=== PATIENT | female | born 1985 | race Caucasian/White ===

== ENCOUNTER 2017-08-22 19:08 | Emergency (ER) | payer OTHER ==
[2017-08-22] MEDS ORDERED: ACETAMINOPHEN TAB 500 MG TAB PO STA (19:42)
--- NOTE | 2017-08-22 20:16 | ED ---
General Adult HPI - General Chief complaint: Upper Respiratory Infection Stated complaint: Cough Time Seen by Provider: 08/22/17 19:29 Source: patient, family, RN notes reviewed Mode of arrival: ambulatory Limitations: no limitations - History of Present Illness Initial comments: Chief complaint and history of present illness this is a 31-year-old female here for complaint of muscle aches and pains mild headache sore throat and cough. Ongoing for several days. Current temperature 99.1. - Related Data Home Medications Medication Instructions Recorded Confirmed Acetaminophen Tab [Tylenol Tab] 650 mg PO Q4H PRN 08/22/17 08/22/17 Pnv,Calcium 72/Iron/Folic Acid 1 tab PO DAILY 08/22/17 08/22/17 [ Plus Tablet] Pseudoephedrine [Sudafed] 30 mg PO Q4H PRN 08/22/17 08/22/17 Previous Rx's Medication Instructions Recorded Amoxicillin 500 mg PO Q8H 10 Days #30 capsule 08/22/17 Allergies Allergy/AdvReac Type Severity Reaction Status Date / Time No Known Allergies Allergy Verified 08/22/17 19:25 Review of Systems ROS Statement: Those systems with pertinent positive or pertinent negative responses have been documented in the HPI. review of systems. The patient has mild headache mild sore throat no stiff neck dry cough muscle aches and pains nausea but no vomiting. The patient is 14 weeks also. 1 para 0. Patient denies any neuro deficits. All systems are reviewed. Past medical problems no problems. Surgeries none. Family history no cancers. Patient denies any ALLERGIES. She does smoke strongly encouraged stop denies alcohol use ROS Other: All systems not noted in ROS Statement are negative. Past Medical History Past Medical History: No Reported History History of Any Multi-Drug Resistant Organisms: None Reported Past Surgical History: No Surgical Hx Reported Past Psychological History: No Psychological Hx Reported Smoking Status: Current every day smoker Past Alcohol Use History: None Reported Past Drug Use History: None Reported General Exam - General Exam Comments Initial Comments: General: The patient is awake and alert, complains of flu-type symptoms plus right ear pain. Vital signs show temperature 99.1 pulse 120 respiratory rate 18, pulse ox 98% on room air. Eye: Pupils are equal, round and reactive to light, extra-ocular movements are intact ; there is normal conjunctiva bilaterally. No signs of icterus. Ears, nose, mouth and throat: There are moist mucous membranes , no anterior cervical lymphadenopathy, no meningeal rotation. Right ear shows full red tympanic membrane. Neck: The neck is supple, there is no tenderness . Cardiovascular: tachycardic heart rate 120.. No murmur, rub or gallop is appreciated. Respiratory: Lungs are clear to auscultation, respirations are non-labored, breath sounds are equal. No wheezes, stridor, rales, or rhonchi. Gastrointestinal: nauseated but no vomiting. History of being 14 weeks . No cramping or vaginal discharge or bleeding or spotting. Back: denies bony back pain just musculoskeletal pain. Musculoskeletal: normal range of motion upper and lower extremities Neurological: no evidence of a complaints of any neuro deficits. Skin: Skin is warm and dry and no rashes or lesions are noted. Limitations: no limitations Course Vital Signs 08/22/17 08/22/17 19:16 19:55 Temperature 99.1 F Pulse Rate 120 H Respiratory 18 20 Rate Blood Pressure 106/59 O2 Sat by Pulse 98 Oximetry Medical Decision Making - Medical Decision Making Influenza AB reported to be negative by laboratory.The patient's symptoms started 5 days ago. Also complaining of right ear infection. The patient be placed on amoxicillin 500 one 3 times a day 10 days. Advised to use Tylenol for pain and fever. Increase fluid intake and follow with family physician and her [employer] [facility]. - Lab Data Lab Results 08/22/17 Range/Units 19:50 Influenza Type A RNA Not Detected (Not Detectd) Influenza Type B (PCR) Not Detected (Not Detectd) Disposition Clinical Impression: Right otitis media, URI (upper respiratory infection) Disposition: HOME SELF-CARE Condition: Fair Instructions: Upper Respiratory Infection (ED), Otitis Media (ED) Additional Instructions: Increase fluids, Tylenol for pain and fever. Amoxicillin 3 times daily until completed. Follow-up with family physician and [facility] as needed. Prescriptions: Amoxicillin 500 mg PO Q8H 10 Days #30 capsule Referrals: None,Stated [Primary Care Provider] - 1-2 days Anna Wagner MD [REFERRING] - 1-2 days Time of Disposition: 20:24
[2017-08-22] MEDS ORDERED: AMOXICILLIN 500MG STARTER PACK 3 CAP BTL PO STA (20:22)
[2017-08-22 20:36] VITALS: BP 122/65; PULSE 103; RESP 18; TEMP 99
== END 2017-08-22 20:36 | disposition home or self-care (01) ==
LOC: EC 19:08
DX: O99.512 Diseases of the respiratory system complicating pregnancy, second trimester (principal); J06.9 Acute upper respiratory infection, unspecified; O99.89 Other specified diseases and conditions complicating pregnancy, childbirth and the puerperium; H66.91 Otitis media, unspecified, right ear; R11.0 Nausea; R00.0 Tachycardia, unspecified; O99.332 Smoking (tobacco) complicating pregnancy, second trimester; F17.200 Nicotine dependence, unspecified, uncomplicated; Z79.899 Other long term (current) drug therapy; Z3A.14 14 weeks gestation of pregnancy
CPT/HCPCS: 87502; 99283

== ENCOUNTER 2018-02-22 12:26 | Observation (INO) | payer OTHER ==
[2018-02-22] MEDS ORDERED: ACETAMINOPHEN IV (For NPO) 1,000 MG in EMPTY BAG 1 BAG IVPB STA (12:56)
[2018-02-22] MEDS ORDERED: ONDANSETRON 4 MG/2 ML VIAL IVP STA (12:57)
--- NOTE | 2018-02-22 13:01 | ED ---
General Adult HPI - General Chief complaint: Shortness of Breath Stated complaint: Shaking, Nausea (had baby on the 6th) Time Seen by Provider: 02/22/18 12:46 Source: patient, RN notes reviewed Mode of arrival: wheelchair Limitations: no limitations - History of Present Illness Initial comments: Patient is a pleasant 32-year-old female presenting to the emergency Department with fever and shaking. Onset of symptoms was 2 nights ago during the night, patient was sweaty. Patient felt fine yesterday. Throughout the night again last night patient became sweaty and not feeling well. Patient did vomit a couple of times this morning and still feels nauseated. Patient does feel a little short of breath. Patient does have a cough however this is a chronic cough. Patient is post approximately 6 days. Patient is A1. Patient still has some bleeding, similar to a period. No pelvic pain. No abdominal pain. Patient did have vaginal delivery. Patient did have some tearing and did have an episiotomy. Patient did take Motrin and hour or 2 prior to arrival. - Related Data Home Medications Medication Instructions Recorded Confirmed Pnv,Calcium 72/Iron/Folic Acid 1 tab PO HS 08/22/17 02/22/18 [ Plus Tablet] Docusate [Colace] 100 mg PO DAILY 02/22/18 02/22/18 Ferrous Sulfate [Feosol] 325 mg PO DAILY 02/22/18 02/22/18 Ibuprofen [Motrin] 600 mg PO Q8HR PRN 02/22/18 02/22/18 Allergies Allergy/AdvReac Type Severity Reaction Status Date / Time No Known Allergies Allergy Verified 02/22/18 12:50 Review of Systems ROS Statement: Those systems with pertinent positive or pertinent negative responses have been documented in the HPI. ROS Other: All systems not noted in ROS Statement are negative. Constitutional: Reports: fever, chills Eyes: Denies: eye pain ENT: Denies: ear pain Respiratory: Reports: cough, dyspnea Cardiovascular: Denies: chest pain Endocrine: Reports: fatigue Gastrointestinal: Reports: nausea, vomiting. Denies: abdominal pain Genitourinary: Denies: dysuria Musculoskeletal: Denies: back pain Skin: Denies: rash Neurological: Denies: weakness Past Medical History Past Medical History: No Reported History History of Any Multi-Drug Resistant Organisms: None Reported Past Surgical History: No Surgical Hx Reported Past Psychological History: No Psychological Hx Reported Smoking Status: Current every day smoker Past Alcohol Use History: None Reported Past Drug Use History: None Reported General Exam Limitations: no limitations General appearance: alert, in no apparent distress Head exam: Present: atraumatic Eye exam: Present: normal appearance, PERRL ENT exam: Present: normal oropharynx Neck exam: Present: normal inspection Respiratory exam: Present: normal lung sounds bilaterally Cardiovascular Exam: Present: tachycardia GI/Abdominal exam: Present: soft. Absent: tenderness External exam: Present: normal external exam Speculum exam: Present: vaginal bleeding (Minimal) By manual exam: Present: adnexal tenderness (Minimal), uterine tenderness ( Minimal) Extremities exam: Present: normal inspection. Absent: pedal edema, calf tenderness Neurological exam: Present: alert Psychiatric exam: Present: normal affect, normal mood Skin exam: Present: normal color Course Vital Signs 02/22/18 02/22/18 02/22/18 12:30 12:45 13:15 Temperature 99.3 F Pulse Rate 159 H 133 H 130 H Respiratory 24 22 22 Rate Blood Pressure 85/46 114/62 108/56 O2 Sat by Pulse 98 99 99 Oximetry 02/22/18 02/22/18 15:00 16:00 Temperature 98.0 F Pulse Rate 111 H 104 H Respiratory 22 20 Rate Blood Pressure 97/55 102/59 O2 Sat by Pulse 97 98 Oximetry - Reevaluation(s) Reevaluation #1: 02/22/18 16:25 Patient reevaluated and improved. Dyspnea resolved. Pelvic exam done in the presence of KISHAN Hudson 02/22/18 17:07 There is concern for infection with urinary tract infection and potentially retained products. Hypotension resolved following fluid bolus. Patient does meet criteria for severe sepsis. Blood culture and lactic acid and fluid bolus and IV antibiotics have been ordered. EKG Findings - EKG Comments: EKG Findings:: Sinus tachycardia 117. FL 132. QRS 86. QT 310. QTc 432. Normal axis. Normal QRS. No acute ST change. Medical Decision Making - Medical Decision Making Upon reevaluation patient was improved from original presentation. Patient does remain tachycardic. Patient was updated on results and plan. Case was discussed in detail Dr. Schmid, who will admit for obstetrical call. - Lab Data Result diagrams: 02/22/18 13:10 02/22/18 13:10 Lab Results 02/22/18 02/22/18 02/22/18 Range/Units 13:10 13:10 13:10 WBC 5.0 (3.8-10.6) k/uL RBC 3.34 L (3.80-5.40) m/uL Hgb 10.3 L (11.4-16.0) gm/dL Hct 30.2 L (34.0-46.0) % MCV 90.6 (80.0-100.0) fL MCH 30.9 (25.0-35.0) pg MCHC 34.1 (31.0-37.0) g/dL RDW 13.0 (11.5-15.5) % Plt Count 315 (150-450) k/uL Neutrophils % 93 % Lymphocytes % 5 % Monocytes % 1 % Eosinophils % 0 % Basophils % 0 % Neutrophils # 4.7 (1.3-7.7) k/uL Lymphocytes # 0.2 L (1.0-4.8) k/uL Monocytes # 0.1 (0-1.0) k/uL Eosinophils # 0.0 (0-0.7) k/uL Basophils # 0.0 (0-0.2) k/uL PT (9.0-12.0) sec INR (<1.2) APTT (22.0-30.0) sec Sodium 134 L (137-145) mmol/L Potassium 3.6 (3.5-5.1) mmol/L Chloride 104 (98-107) mmol/L Carbon Dioxide 18 L (22-30) mmol/L Anion Gap 12 mmol/L BUN 12 (7-17) mg/dL Creatinine 0.68 (0.52-1.04) mg/dL Est GFR (CKD-EPI)AfAm >90 (>60 ml/min/1.73 sqM) Est GFR (CKD-EPI)NonAf >90 (>60 ml/min/1.73 sqM) Glucose 96 (74-99) mg/dL Plasma Lactic Acid Luther 1.7 (0.7-2.0) mmol/L Calcium 9.1 (8.4-10.2) mg/dL Total Bilirubin 0.4 (0.2-1.3) mg/dL AST 21 (14-36) U/L ALT 23 (9-52) U/L Alkaline Phosphatase 228 H (38-126) U/L Total Protein 5.9 L (6.3-8.2) g/dL Albumin 3.1 L (3.5-5.0) g/dL Urine Color Urine Appearance (Clear) Urine pH (5.0-8.0) Ur Specific [place] (1.001-1.035) Urine Protein (Negative) Urine Glucose (UA) (Negative) Urine Ketones (Negative) Urine Blood (Negative) Urine Nitrite (Negative) Urine Bilirubin (Negative) Urine Urobilinogen (<2.0) mg/dL Ur Leukocyte Esterase (Negative) Urine RBC (0-5) /hpf Urine WBC (0-5) /hpf Ur Squamous Epith Cells (0-4) /hpf Urine Bacteria (None) /hpf Urine Mucus (None) /hpf 02/22/18 02/22/18 Range/Units 13:10 14:48 WBC (3.8-10.6) k/uL RBC (3.80-5.40) m/uL Hgb (11.4-16.0) gm/dL Hct (34.0-46.0) % MCV (80.0-100.0) fL MCH (25.0-35.0) pg MCHC (31.0-37.0) g/dL RDW (11.5-15.5) % Plt Count (150-450) k/uL Neutrophils % % Lymphocytes % % Monocytes % % Eosinophils % % Basophils % % Neutrophils # (1.3-7.7) k/uL Lymphocytes # (1.0-4.8) k/uL Monocytes # (0-1.0) k/uL Eosinophils # (0-0.7) k/uL Basophils # (0-0.2) k/uL PT 9.9 (9.0-12.0) sec INR 1.0 (<1.2) APTT 20.9 L (22.0-30.0) sec Sodium (137-145) mmol/L Potassium (3.5-5.1) mmol/L Chloride (98-107) mmol/L Carbon Dioxide (22-30) mmol/L Anion Gap mmol/L BUN (7-17) mg/dL Creatinine (0.52-1.04) mg/dL Est GFR (CKD-EPI)AfAm (>60 ml/min/1.73 sqM) Est GFR (CKD-EPI)NonAf (>60 ml/min/1.73 sqM) Glucose (74-99) mg/dL Plasma Lactic Acid Luther (0.7-2.0) mmol/L Calcium (8.4-10.2) mg/dL Total Bilirubin (0.2-1.3) mg/dL AST (14-36) U/L ALT (9-52) U/L Alkaline Phosphatase (38-126) U/L Total Protein (6.3-8.2) g/dL Albumin (3.5-5.0) g/dL Urine Color Light Yellow Urine Appearance Clear (Clear) Urine pH 6.5 (5.0-8.0) Ur Specific [place] 1.004 (1.001-1.035) Urine Protein Negative (Negative) Urine Glucose (UA) Negative (Negative) Urine Ketones Negative (Negative) Urine Blood Large H (Negative) Urine Nitrite Negative (Negative) Urine Bilirubin Negative (Negative) Urine Urobilinogen <2.0 (<2.0) mg/dL Ur Leukocyte Esterase Large H (Negative) Urine RBC 15 H (0-5) /hpf Urine WBC 54 H (0-5) /hpf Ur Squamous Epith Cells 3 (0-4) /hpf Urine Bacteria Rare H (None) /hpf Urine Mucus Rare H (None) /hpf Critical Care Time Critical Care Time: Yes Total Critical Care Time: 31 Disposition Clinical Impression: Urinary tract infection, Severe sepsis, Retained products of conception Disposition: ADMITTED IP TO THIS HOSP Is patient prescribed a controlled substance at d/c from ED?: No Referrals: Roque Martinez DO [Primary Care Provider] - 1-2 days Decision Time: 17:08
[2018-02-22] MEDS: SODIUM CHLORIDE 0.9% 500 ML IV SCH ×5 (13:11→15:00)
[2018-02-22 13:32] LABS: Basophils % (A) 0 %; Eosinophils % (A) 0 %; HCT 30.2 % (34.0-46.0); HGB 10.3 gm/dL (11.4-16.0); Lymphocytes # (A) 0.2 k/uL (1.0-4.8); Lymphocytes % (A) 5 %; MCH 30.9 pg (25.0-35.0); MCHC 34.1 g/dL (31.0-37.0); MCV 90.6 fL (80.0-100.0); Mean Platelet Volume 6.8; Monocytes # (A) 0.1 k/uL (0-1.0); Monocytes % (A) 1 %; Neutrophils # (A) 4.7 k/uL (1.3-7.7); Neutrophils % (A) 93 %; Platelet Count 315 k/uL (150-450); RBC 3.34 m/uL (3.80-5.40)
[2018-02-22 13:41] LABS: ALT 23 U/L (9-52); AST 21 U/L (14-36); Albumin 3.1 g/dL (3.5-5.0); Alkaline Phosphatase 228 U/L (38-126); Anion Gap 12 mmol/L; Blood Urea Nitrogen 12 mg/dL (7-17); Calcium 9.1 mg/dL (8.4-10.2); Carbon Dioxide 18 mmol/L (22-30); Chloride 104 mmol/L (98-107); Glucose 96 mg/dL (74-99); Potassium 3.6 mmol/L (3.5-5.1); Sodium 134 mmol/L (137-145); Total Bilirubin 0.4 mg/dL (0.2-1.3); Total Protein 5.9 g/dL (6.3-8.2)
[2018-02-22 13:48] LABS: Partial Thromboplastin Time 20.9 sec (22.0-30.0); Prothrombin Time 9.9 sec (9.0-12.0)
--- NOTE | 2018-02-22 14:49 | US ---
EXAMINATION TYPE: US pelvis complete transvag DATE OF EXAM: 02/22/2018 COMPARISON: NONE CLINICAL HISTORY: Fever, . Fever, chills and vomiting x 1 day, 9 days , patient s tates bleeding was slowing down but started getting heavy again 3 days ago TECHNIQUE: . Transabdominal sonographic images of the pelvis were acquired. Date of LMP: Unknown EXAM MEASUREMENTS: Uterus: 22.6 x 7.7 x 13.9 cm Endometrial Stripe: Right Ovary: not seen Left Ovary: not seen 1. Uterus: anteverted, enlarged 2. Endometrium: 9.0 x 6.5 x 10.3cm vascular hypoechoic area appears to be within fundal portion of e ndometrium 3. Right Ovary: not seen due to enlarged uterus 4. Left Ovary: not seen due to enlarged uterus 5. Bilateral Adnexa: wnl 6. Posterior cul-de-sac: wnl IMPRESSION: There is some thickening of the endometrium region at the uterine fundus without fluid. N o evidence of an abscess. This measures 7 x 5 cm. The possibility of retained products should be cons idered. Endometritis is possible. I would also consider large endometrial polyp or unusual fibroid..
[2018-02-22 15:06] LABS: Appearance,Urine Clear (Clear); Bacteria,Urine Rare /hpf; Bilirubin,Urine Negative (Negative); Blood,Urine Large (Negative); Color,Urine Light Yellow; Glucose,Urine (UA) Negative (Negative); Ketones,Urine Negative (Negative); Leukocyte Esterase,Urine Large (Negative); Mucus,Urine Rare /hpf; Nitrite,Urine Negative (Negative); PH, Urine 6.5 (5.0-8.0); Protein,Urine Negative (Negative); RBC,Urine 15 /hpf (0-5); Specific Gravity,Urine 1.004 (1.001-1.035); Squamous Epithelial Cell,Urine 3 /hpf (0-4); Urobilinogen,Urine <2.0 mg/dL (<2.0); WBC,Urine 54 /hpf (0-5)
--- NOTE | 2018-02-22 15:19 | XR ---
EXAMINATION TYPE: XR chest 2V DATE OF EXAM: 02/22/2018 COMPARISON: NONE HISTORY: Short of breath TECHNIQUE: Frontal and lateral views of the chest are obtained. FINDINGS: Heart and mediastinum are normal. Lungs are clear. Costophrenic angles are clear. There ar e chest leads. Bony thorax is intact. IMPRESSION: Normal chest
[2018-02-22] MEDS ORDERED: AMPICILLIN-SULBACTAM 3 GM in SODIUM CHLORIDE 0.9% 100 ML IVPB STA (17:09)
[2018-02-22] MEDS ORDERED: ONDANSETRON 4 MG/2 ML VIAL IVP PRN (17:12)
[2018-02-22] MEDS ORDERED: NALOXONE 0.4 MG/ML 1 ML VIAL IV PRN (17:12)
[2018-02-22] MEDS ORDERED: GENTAMICIN PER PHARMACY MISCELLANE SCH (17:15)
[2018-02-22 18:09] VITALS: BMI 29.0
--- NOTE | 2018-02-22 18:09 | P.HPOB ---
History of Present Illness H&P Date: 02/22/18 Chief Complaint: Fever This is a 32-year-old 2 para 1011 woman who is 9 days from a normal spontaneous vaginal delivery that was complicated by a retained placenta. Over the past 24 hours she has felt progressively worse with fevers, chills, sweating and abdominal cramping. She has had intermittent bright red vaginal blood flow. She describes a healthy normal followed by a term spontaneous vaginal delivery at [facility]. It took approximately 1 hour for the placenta to be delivered by what sounds like a manual extraction. Upon evaluation in the emergency room pelvic ultrasound shows an enlarged uterus with a 10 cm vascular mass in the fundal region of the uterus consistent with retained products. Review of Systems Constitutional: Reports chills, Reports fever, Reports sweats Breasts: bilateral: swelling (Stopped breast-feeding 2-3 days ago) Cardiovascular: Reports shortness of breath, Denies chest pain, Denies irregular heart beat, Denies leg edema, Denies lightheadedness, Denies palpitations, Denies rapid heart beat Respiratory: Denies cough Gastrointestinal: Reports abdominal pain, Denies constipation, Denies diarrhea, Denies heartburn, Denies nausea, Denies vomiting Genitourinary: Reports abnormal vaginal bleeding, Reports vaginal discharge, Denies flank pain, Denies hematuria Menstruation: Reports as per HPI Musculoskeletal: Denies low back pain Integumentary: Denies rash Neurological: Denies headaches, Denies visual changes Endocrine: Reports fatigue, Denies high blood sugars Past Medical History Past Medical History: No Reported History History of Any Multi-Drug Resistant Organisms: None Reported Additional Past Surgical History / Comment(s): D&C 2016 for missed Past Psychological History: No Psychological Hx Reported Smoking Status: Current every day smoker Past Alcohol Use History: None Reported Past Drug Use History: None Reported Medications and Allergies Home Medications Medication Instructions Recorded Confirmed Type Pnv,Calcium 72/Iron/Folic Acid 1 tab PO HS 08/22/17 02/22/18 History [ Plus Tablet] Docusate [Colace] 100 mg PO DAILY 02/22/18 02/22/18 History Ferrous Sulfate [Feosol] 325 mg PO DAILY 02/22/18 02/22/18 History Ibuprofen [Motrin] 600 mg PO Q8HR PRN 09/15/18 09/15/18 History Allergies Allergy/AdvReac Type Severity Reaction Status Date / Time No Known Allergies Allergy Verified 02/22/18 12:50 Exam Vital Signs Temp Pulse Resp BP Pulse Ox 02/22/18 17:40 98.2 F 102 H 20 99/56 99 02/22/18 17:00 108 H 20 101/56 99 02/22/18 16:00 104 H 20 102/59 98 02/22/18 15:00 98.0 F 111 H 22 97/55 97 02/22/18 13:15 130 H 22 108/56 99 02/22/18 12:45 133 H 22 114/62 99 02/22/18 12:30 99.3 F 159 H 24 85/46 98 Intake and Output 02/22/18 02/22/18 02/22/18 06:59 14:59 22:59 Other: Weight 81.647 kg This is a pale but pleasant female in no obvious distress. HEENT exam is unremarkable. The lungs are clear to auscultation bilaterally and the heart is of regular rate and rhythm with no murmur. The abdomen is soft and the uterus is palpable approximately 5 cm below the umbilicus. It is firm and nontender. She does have some mild suprapubic tenderness. This is confirmed on bimanual exam. Speculum examination is not performed. Extremities are free of edema or erythema. She has no calf tenderness. Neurologically she is grossly intact and mood and affect are normal. Results Result Diagrams: 02/22/18 13:10 02/22/18 13:10 Abnormal Lab Results - Last 24 Hours (Table) 02/22/18 02/22/18 02/22/18 Range/Units 13:10 13:10 13:10 RBC 3.34 L (3.80-5.40) m/uL Hgb 10.3 L (11.4-16.0) gm/dL Hct 30.2 L (34.0-46.0) % Lymphocytes # 0.2 L (1.0-4.8) k/uL APTT 20.9 L (22.0-30.0) sec Sodium 134 L (137-145) mmol/L Carbon Dioxide 18 L (22-30) mmol/L Alkaline Phosphatase 228 H (38-126) U/L Total Protein 5.9 L (6.3-8.2) g/dL Albumin 3.1 L (3.5-5.0) g/dL Urine Blood (Negative) Ur Leukocyte Esterase (Negative) Urine RBC (0-5) /hpf Urine WBC (0-5) /hpf Urine Bacteria (None) /hpf Urine Mucus (None) /hpf 02/22/18 Range/Units 14:48 RBC (3.80-5.40) m/uL Hgb (11.4-16.0) gm/dL Hct (34.0-46.0) % Lymphocytes # (1.0-4.8) k/uL APTT (22.0-30.0) sec Sodium (137-145) mmol/L Carbon Dioxide (22-30) mmol/L Alkaline Phosphatase (38-126) U/L Total Protein (6.3-8.2) g/dL Albumin (3.5-5.0) g/dL Urine Blood Large H (Negative) Ur Leukocyte Esterase Large H (Negative) Urine RBC 15 H (0-5) /hpf Urine WBC 54 H (0-5) /hpf Urine Bacteria Rare H (None) /hpf Urine Mucus Rare H (None) /hpf US - abdomen: report reviewed Assessment and Plan (1) Retained placenta condition or complication Narrative/Plan: This is a 32-year-old 2 para 1011 woman who is 9 days . Ultrasound findings are consistent with retained products of conception and her history is significant for retained placenta at the time of vaginal delivery. She is afebrile and has a normal white blood cell count however picture clinically concerning for developing endometritis. She has been started prophylactically on ampicillin, gentamicin and clindamycin. She is counseled regarding recommendation for suction dilation and curettage to remove the retained placenta. This procedure is reviewed in detail with the patient. Risks include bleeding, transfusion, infection, uterine atony, uterine injury and/or perforation with damage to pelvic or abdominal structures. The patient understands these risks and consent is obtained. The operating room staff has been notified. She has been nothing by mouth for several hours. Current Visit: Yes Status: Acute Code(s): O73.0 - RETAINED PLACENTA WITHOUT HEMORRHAGE SNOMED Code(s): 379746903 (2) Retained products of conception Current Visit: Yes Status: Acute Code(s): QBC1413 - SNOMED Code(s): 367090044 (3) Urinary tract infection Current Visit: Yes Status: Acute Code(s): N39.0 - URINARY TRACT INFECTION, SITE NOT SPECIFIED SNOMED Code(s): 10603345
[2018-02-22] MEDS ORDERED: fentaNYL (PF) 50 MCG/ML 2 ML AMP ONE (18:57)
[2018-02-22] MEDS ORDERED: METHYLERGONOVINE 0.2 MG/ML 1 ML AMP ONE (18:57)
[2018-02-22] MEDS ORDERED: MIDAZOLAM 2 MG/2 ML VIAL ONE (18:57)
[2018-02-22] MEDS ORDERED: LIDOCAINE 1% INJ 10MG/ML (20 ML MDV) ONE (18:57)
[2018-02-22] MEDS ORDERED: OXYTOCIN 10 UNIT/ML 1 ML VIAL ONE (18:57)
[2018-02-22] MEDS ORDERED: PROPOFOL 10 MG/ML 20 ML VIAL IV ONE (18:57)
[2018-02-22] MEDS ORDERED: SUCCINYLCHOLINE CHLORIDE 100 MG/5 ML SYR IV ONE (18:57)
[2018-02-22] MEDS ORDERED: IV FLUID CONTINUATION 700 ML IV ONE (18:57)
[2018-02-22] MEDS ORDERED: LACTATED RINGERS 1,000 ML IV ONE (19:23)
--- NOTE | 2018-02-22 19:35 | P.OP ---
Date of Procedure: 02/22/18 Preoperative Diagnosis: Retained placenta Dehiscence of perineal laceration repair Postoperative Diagnosis: Same Procedure(s) Performed: Suction and sharp D&C Anesthesia: DOUG Surgeon: Graciela Schmid Estimated Blood Loss (ml): 200 IV fluids (ml): 700 Urine output (ml): 200 Pathology: other (Endometrial curettings, retained products) Condition: stable Disposition: PACU Operative Findings: Enlarged uterus approximately 18 weeks size. Cervix 3 cm dilated. Second- degree perineal laceration with disrupted sutures. Retained products consistent with old clot and placental material. Description of Procedure: The patient was taken from the floor to the operating room where general anesthetic was administered without incident. She was then positioned, prepped and draped in the dorsal lithotomy position. Exam under anesthetic revealed an enlarged uterus approximately 18 week size. Cervix was 3 cm dilated. The bladder was drained with the straight catheter for approximately 200 mL of clear urine. The perineum was noted to have disrupted suture material and an open second-degree perineal laceration. Speculum was placed in the vagina and the patulous cervix was grasped with a single-tooth tenaculum anteriorly. The cervix did not require dilating to allow for passage of the 14-Italian suction curet. Prior to introduction suction curet however a large banjo curet was introduced. Dark clot and placental type tissue was obtained from the fundal region but it was a small amount compared to anticipated from the ultrasound findings. The 14-Italian suction curette was then introduced and some additional tissue was obtained. Following removal of the suction curet there was brisk right bright red vaginal bleeding. The patient was given on 20 units of Pitocin in 300 mL of IV fluids. She also received 0.25 mg of IM Methergine. The uterus was bimanually massaged and was noted to be firm and the bleeding rapidly decreased. The sharp banjo curette was then introduced and gradient uterine texture was noted throughout except for the area of the fundus. With curettage of this area however no additional tissue was obtained. Due to concern for creation of ongoing bleeding with possible placenta accreta the procedure was terminated. The cervix was observed for several minutes and no further active bleeding was noted. The disrupted suture material was removed from the perineum and 3-0 Vicryl suture was utilized to repair the second- degree perineal laceration in the usual fashion. All counts reported to pr as correct by the operating room staff and the patient was awoken from anesthetic without incident. She was then transported to the recovery area in good condition. She will be observed overnight on the floor and receive additional antibiotics.
[2018-02-22] MEDS: HYDROmorphone 1 MG/ML 1 ML SYRINGE IVP ONE ×2 (19:44→19:50)
[2018-02-22] MEDS ORDERED: Acetaminophen-Codeine 300-30mg TAB PO PRN (20:05)
[2018-02-22] MEDS: CLINDAMYCIN 600 MG in DEXTROSE 5% IN WATER 50 ML IVPB SCH ×2 (20:35)
[2018-02-22] MEDS: GENTAMICIN 120 MG in SODIUM CHLORIDE 0.9% 100 ML IVPB SCH (21:36)
[2018-02-22] MEDS: SODIUM CHLORIDE 0.9% 1,000 ML IV SCH (21:43)
[2018-02-22] MEDS: METHYLERGONOVINE 0.2 MG TAB PO SCH (21:47)
[2018-02-22] MEDS: Acetaminophen-Codeine 300-30mg TAB PO PRN (22:08)
[2018-02-23] MEDS: AMPICILLIN 2,000 MG in SODIUM CHLORIDE 0.9% 100 ML IVPB SCH ×3 (00:10→16:59)
[2018-02-23] MEDS: Acetaminophen-Codeine 300-30mg TAB PO PRN ×4 (03:41→23:14)
[2018-02-23] MEDS: CLINDAMYCIN 600 MG in DEXTROSE 5% IN WATER 50 ML IVPB SCH ×6 (03:57→20:15)
[2018-02-23] MEDS: GENTAMICIN 120 MG in SODIUM CHLORIDE 0.9% 100 ML IVPB SCH ×3 (05:15→21:22)
[2018-02-23 07:37] LABS: Basophils % (A) 0 %; Eosinophils % (A) 0 %; HCT 25.8 % (34.0-46.0); Hypochromasia Slight; Lymphocytes # (A) 0.4 k/uL (1.0-4.8); Lymphocytes % (A) 5 %; MCH 29.8 pg (25.0-35.0); MCHC 31.9 g/dL (31.0-37.0); MCV 93.3 fL (80.0-100.0); Mean Platelet Volume 7.1; Monocytes # (A) 0.3 k/uL (0-1.0); Monocytes % (A) 4 %; Neutrophils # (A) 8.5 k/uL (1.3-7.7); Neutrophils % (A) 91 %; Platelet Count 219 k/uL (150-450); RBC 2.76 m/uL (3.80-5.40); RDW 13.2 % (11.5-15.5); WBC 9.4 k/uL (3.8-10.6)
[2018-02-23 07:55] LABS: HGB 8.2 gm/dL (11.4-16.0)
[2018-02-23] MEDS: METHYLERGONOVINE 0.2 MG TAB PO SCH (08:23)
--- NOTE | 2018-02-23 10:53 | P.PN ---
Subjective Progress Note Date: 02/23/18 Principal diagnosis: Retained placenta, endometritis Fever to 102.2 through the night. She is complaining of some pelvic cramping. She does not feel well however feels better than she did leading up to her admission. Scant vaginal bleeding. Voiding without difficulty. Objective - Vital Signs Vital signs: Vital Signs Temp 98.3 F 02/23/18 08:00 Pulse 115 H 02/23/18 08:00 Resp 18 02/23/18 08:00 BP 105/61 02/23/18 08:00 Pulse Ox 100 02/23/18 08:00 Intake & Output 02/22/18 02/23/18 02/23/18 18:59 06:59 18:59 Intake Total 700 450 Output Total 400 Balance 700 50 Weight 81.647 kg Intake: IV 700 150 Intake, IV Titration 300 Amount Ampicillin 2,000 mg In 100 Sodium Chloride 0.9% 100 ml @ 200 mls/hr IVPB Q8HR [facility] Rx#:[id number] Clindamycin 600 mg In 100 Dextrose 5% in Water 50 ml @ 50 mls/hr IVPB Q8HR [facility] Rx#:[id number] Gentamicin 120 mg In 100 Sodium Chloride 0.9% 100 ml @ 103 mls/hr IVPB Q8HR [facility] Rx#:[id number] Output: Urine 200 Estimated Blood Loss 200 Other: # Voids 1 - Constitutional General appearance: Present: average body habitus, no acute distress - Respiratory Respiratory: bilateral: CTA - Cardiovascular Rhythm: other (Mild tachycardia) - Gastrointestinal Localized gastrointestinal: tender: suprabubic - Genitourinary Genitourinary Comment(s): Fundus of uterus is tender and located midway between the pubic bone and umbilicus. - Neurologic Neurologic: Absent: focal deficits - Psychiatric Psychiatric: Present: appropriate affect - Labs CBC & Chem 7: 02/23/18 07:26 02/22/18 13:10 Labs: Abnormal Lab Results - Last 24 Hours (Table) 02/22/18 02/22/18 02/22/18 Range/Units 13:10 13:10 13:10 RBC 3.34 L (3.80-5.40) m/uL Hgb 10.3 L (11.4-16.0) gm/dL Hct 30.2 L (34.0-46.0) % Neutrophils # (1.3-7.7) k/uL Lymphocytes # 0.2 L (1.0-4.8) k/uL APTT 20.9 L (22.0-30.0) sec Sodium 134 L (137-145) mmol/L Carbon Dioxide 18 L (22-30) mmol/L Alkaline Phosphatase 228 H (38-126) U/L Total Protein 5.9 L (6.3-8.2) g/dL Albumin 3.1 L (3.5-5.0) g/dL Urine Blood (Negative) Ur Leukocyte Esterase (Negative) Urine RBC (0-5) /hpf Urine WBC (0-5) /hpf Urine Bacteria (None) /hpf Urine Mucus (None) /hpf 02/22/18 02/23/18 Range/Units 14:48 07:26 RBC 2.76 L (3.80-5.40) m/uL Hgb 8.2 L D (11.4-16.0) gm/dL Hct 25.8 L (34.0-46.0) % Neutrophils # 8.5 H (1.3-7.7) k/uL Lymphocytes # 0.4 L (1.0-4.8) k/uL APTT (22.0-30.0) sec Sodium (137-145) mmol/L Carbon Dioxide (22-30) mmol/L Alkaline Phosphatase (38-126) U/L Total Protein (6.3-8.2) g/dL Albumin (3.5-5.0) g/dL Urine Blood Large H (Negative) Ur Leukocyte Esterase Large H (Negative) Urine RBC 15 H (0-5) /hpf Urine WBC 54 H (0-5) /hpf Urine Bacteria Rare H (None) /hpf Urine Mucus Rare H (None) /hpf Microbiology - Last 24 Hours (Table) 02/22/18 14:48 Urine Culture - Preliminary Urine,Voided Assessment and Plan (1) Retained placenta condition or complication Narrative/Plan: Status post D&C, postop day 1. No active bleeding at this time. WBC was within normal limits however she had a fever of 102.2 through the evening. Currently afebrile. On ampicillin, gentamicin, clindamycin. Plan is to continue antibiotics until afebrile 24 hours then converted to oral antibiotics. Surgical findings, labs and plan reviewed with the patient in detail and all questions answered. Current Visit: Yes Status: Acute Code(s): O73.0 - RETAINED PLACENTA WITHOUT HEMORRHAGE SNOMED Code(s): 728908775 (2) Retained products of conception Current Visit: Yes Status: Acute Code(s): CYD6578 - SNOMED Code(s): 907687151 (3) Urinary tract infection Current Visit: Yes Status: Acute Code(s): N39.0 - URINARY TRACT INFECTION, SITE NOT SPECIFIED SNOMED Code(s): 24262950 (4) Endometritis Current Visit: Yes Status: Acute Code(s): N71.9 - INFLAMMATORY DISEASE OF UTERUS, UNSPECIFIED SNOMED Code(s): 50108524
[2018-02-23] MEDS: IBUPROFEN 600 MG TAB PO PRN ×2 (12:57→21:35)
[2018-02-23] MEDS ORDERED: GENTAMICIN TROUGH DUE 1 EACH MISC MISCELLANE ONE (20:00)
[2018-02-23 20:21] VITALS: RESP 16
[2018-02-23] MEDS: SODIUM CHLORIDE 0.9% 1,000 ML IV SCH (21:40)
[2018-02-24] MEDS: AMPICILLIN 2,000 MG in SODIUM CHLORIDE 0.9% 100 ML IVPB SCH (02:10)
[2018-02-24] MEDS: CLINDAMYCIN 600 MG in DEXTROSE 5% IN WATER 50 ML IVPB SCH ×2 (04:00)
[2018-02-24 04:03] VITALS: BP 96/63; PULSE 85; TEMP 97.7
[2018-02-24] MEDS: SODIUM CHLORIDE 0.9% 1,000 ML IV SCH ×2 (04:05→04:06)
[2018-02-24] MEDS: GENTAMICIN 120 MG in SODIUM CHLORIDE 0.9% 100 ML IVPB SCH (05:21)
[2018-02-24] MEDS: IBUPROFEN 600 MG TAB PO PRN (05:22)
[2018-02-24 07:43] LABS: Anion Gap 6 mmol/L; Blood Urea Nitrogen 7 mg/dL (7-17); Carbon Dioxide 21 mmol/L (22-30); Chloride 113 mmol/L (98-107); Glucose 87 mg/dL (74-99); Potassium 3.9 mmol/L (3.5-5.1); Sodium 140 mmol/L (137-145)
[2018-02-24] MEDS: Acetaminophen-Codeine 300-30mg TAB PO PRN (08:24)
--- NOTE | 2018-02-24 09:20 | P.DS ---
Providers Date of admission: 02/22/18 17:13 Expected date of discharge: 02/24/18 Attending physician: Graciela Schmid Primary care physician: Roque Martinez - Discharge Diagnosis(es) (1) Retained placenta condition or complication Current Visit: Yes Status: Acute (2) Retained products of conception Current Visit: Yes Status: Acute (3) Urinary tract infection Current Visit: Yes Status: Acute (4) Endometritis Current Visit: Yes Status: Acute Hospital Course: This is a 32-year-old 1 para 1 woman who presented 9 days with fevers, chills and vaginal bleeding. Her delivery had been complicated by a prolonged third stage of labor with retained placenta. Ultrasound here showed a 10 cm intrauterine vascular mass consistent with retained products. She was admitted and started on triple antibiotics. She was taken to the operating room where D&C was performed. Tissue consistent with placenta was obtained however clinically was not consistent with the amount anticipated from ultrasound findings. Incidentally the second-degree perineal laceration that had dehisced some at some point was repaired intraoperatively. Post operatively she did have a single febrile episode of 102.2. Her antibiotics were continued for greater than 24 hours after this fever and she had no further febrile episodes. She otherwise on recovered well. She was able to ambulate and void without difficulty. She tolerated a general diet. Her clinical exam improved with decreasing fundal tenderness, scant vaginal bleeding and normalized white blood cell count. She was therefore discharged home to follow-up with her primary degreaser with continued ongoing oral antibiotics. Procedures: D&C Patient Condition at Discharge: Good Plan - Discharge Summary New Discharge Prescriptions: New Doxycycline [Vibramycin] 50 mg PO Q12HR #14 capsule Continue Ferrous Sulfate [Iron (65 MG Elemental)] 325 mg PO DAILY Docusate [Colace] 100 mg PO DAILY Ibuprofen [Motrin] 600 mg PO Q8HR PRN #30 tab PRN Reason: Pain No Action Pnv,Calcium 72/Iron/Folic Acid [ Plus Tablet] 1 tab PO HS Discharge Medication List Pnv,Calcium 72/Iron/Folic Acid [ Plus Tablet] 1 tab PO HS 08/22/17 [ History] Docusate [Colace] 100 mg PO DAILY 02/22/18 [History] Ferrous Sulfate [Iron (65 MG Elemental)] 325 mg PO DAILY 02/22/18 [History] Doxycycline [Vibramycin] 50 mg PO Q12HR #14 capsule 02/24/18 [Rx] Ibuprofen [Motrin] 600 mg PO Q8HR PRN #30 tab 02/24/18 [Rx] Follow up Appointment(s)/Referral(s): Roque Martinez DO [Primary Care Provider] - 1-2 days Activity/Diet/Wound Care/Special Instructions: Follow up with your primary degreaser within one week. Notify the office with any fever greater than 100.5, foul vaginal discharge, heavy vaginal bleeding, severe abdominal or pelvic pain, swelling or redness of the lower extremities or difficulty voiding. Discharge Disposition: HOME SELF-CARE
== END 2018-02-24 10:15 | disposition home or self-care (01) ==
LOC: EC 12:26 → 4FBP 17:13
PROVIDERS: ADMIT Obstetrics & Gynecology; ATTEND Obstetrics & Gynecology
DX: O72.2 Delayed and secondary postpartum hemorrhage (principal); O86.12 Endometritis following delivery; O86.20 Urinary tract infection following delivery, unspecified; O90.1 Disruption of perineal obstetric wound; O99.335 Smoking (tobacco) complicating the puerperium; F17.200 Nicotine dependence, unspecified, uncomplicated
CPT/HCPCS: 59160; 12020; 99291 ×2; 96374 ×2; 96375 ×3; 36415; 93005; 80170 ×2; 88305; 80053; 80048; 83605; 85025 ×2; 85610; 85730; 81001; 87040; 87086; 87077; 87186; 71046; 76856; G0378 ×3; J2250; J1580 ×3; J2210; J2590; J2405; J2001; J3010; J0290 ×2; J1170; J0295; J0131; J0330; J2704